=== PATIENT | female | born 1950 | race Caucasian/White ===

== ENCOUNTER 2017-06-10 20:43 | Emergency (ER) | payer MEDICARE, OTHER ==
[2017-06-10 21:01] VITALS: TEMP 97.6
[2017-06-10] MEDS ORDERED: KETOROLAC TROMETHAMINE 30 MG/ML SOL IM ONE (21:03)
[2017-06-10] MEDS ORDERED: KETOROLAC TROMETHAMINE 30 MG/ML SOL ONE (21:18)
[2017-06-10 21:37] VITALS: PULSE 82; RESP 20
[2017-06-10] MEDS ORDERED: TRAMADOL HYDROCHLORIDE 50 MG TAB PO ONE (21:49)
[2017-06-10] MEDS ORDERED: TRAMADOL HYDROCHLORIDE 50 MG TAB ONE (21:54)
[2017-06-10 22:02] VITALS: BP 153/57; O2SAT 95
== END 2017-06-10 22:00 | disposition home or self-care (01) | DRG 605 ==
LOC: ED 20:43
DX: S90.32XA Contusion of left foot, initial encounter (principal); W22.8XXA Striking against or struck by other objects, initial encounter
CPT/HCPCS: 73630; 99283; J1885

== ENCOUNTER 2018-06-21 14:11 | Emergency (ER) | payer MEDICARE, OTHER ==
[2018-06-21 14:29] VITALS: TEMP 97.1
[2018-06-21 14:36] VITALS: RESP 20; O2SAT 98
[2018-06-21] MEDS ORDERED: CLONIDINE 0.1 MG TAB PO ONE (14:41)
[2018-06-21] MEDS ORDERED: HYDRALAZINE HYDROCHLORIDE 20 MG/ML SOL IM ONE (14:41)
[2018-06-21] MEDS ORDERED: CLONIDINE 0.1 MG TAB ONE (14:42)
[2018-06-21] MEDS ORDERED: HYDRALAZINE HYDROCHLORIDE 20 MG/ML SOL ONE (14:42)
[2018-06-21 14:55] LABS: BASOPHILS % (AUTO) 1 % (0-3); EOSINOPHILS % (AUTO) 4 % (0-9); HEMATOCRIT 40 % (35-47); LYMPHOCYTES % (AUTO) 26.1 % (10-50); MEAN CORPUSCULAR HEMOGLOBIN 29.9 pg (27.0-32.0); MEAN CORPUSCULAR HGB CONC 32.4 gm/dl (32.0-36.0); MEAN CORPUSCULAR VOLUME 92 fL (81-99); MONOCYTES % (AUTO) 7.9 % (0-12); NEUTROPHILS % (AUTO) 61.1 % (37-80)
[2018-06-21 15:10] LABS: BLOOD UREA NITROGEN 14 mg/dl (7-18); CALCIUM 9.1 mg/dl (8.5-10.1); CARBON DIOXIDE 27.3 mEq/L (21-32); CHLORIDE 102 mMol/L (98-107); CREATININE 1.19 mg/dl (0.60-1.00); GLUCOSE 95 mg/dl (74-106); POTASSIUM 4.6 mMol/L (3.5-5.1); SODIUM 138 mMol/L (136-145); TROP I < 0.017 ng/ml (0.000-0.056)
[2018-06-21 15:19] VITALS: PULSE 89
[2018-06-21 15:33] VITALS: BP 135/55
== END 2018-06-21 15:42 | disposition home or self-care (01) | DRG 305 ==
LOC: ED 14:11
DX: I16.9 Hypertensive crisis, unspecified (principal)
CPT/HCPCS: 36415; 80048; 84484; 85025; 93005; 96372; 99284; J0360; A9270-GY

== ENCOUNTER 2019-01-02 11:34 | Emergency (ER) | payer MEDICARE, OTHER ==
[2019-01-02] MEDS ORDERED: ONDANSETRON HCL 4 MG/2 ML SOL ONE (12:58)
[2019-01-02] MEDS ORDERED: SODIUM CHLORIDE 0.9% 1000ML 1,000 ML IV ONE (13:05)
[2019-01-02] MEDS ORDERED: ONDANSETRON HCL 4 MG/2 ML SOL IV ONE (13:05)
[2019-01-02 13:36] LABS: HEMATOCRIT 44 % (35-47); HEMOGLOBIN 14.1 gm/dl (12.0-15.5); MEAN CORPUSCULAR HGB CONC 32.1 gm/dl (32.0-36.0); MEAN CORPUSCULAR VOLUME 93 fL (81-99)
[2019-01-02 13:52] LABS: ALBUMIN 3.3 gm/dl (3.4-5.0); BILIRUBIN,TOTAL 0.2 mg/dl (0.2-1.0); CALCIUM 9.6 mg/dl (8.5-10.1); CARBON DIOXIDE 28.1 mEq/L (21-32); CREATININE 0.84 mg/dl (0.60-1.00); CRP INFLAMMATORY 0.85 mg/dl (0.00-0.33); POTASSIUM 4.6 mMol/L (3.5-5.1); TOTAL PROTEIN 7.6 gm/dl (6.4-8.2)
[2019-01-02 14:08] VITALS: O2SAT 95
[2019-01-02 14:52] LABS: BAND NEUTROPHILS % (MANUAL) 3 %; LYMPHOCYTES % (MANUAL) 8 % (10-50); MONOCYTES % (MANUAL) 3 % (0-12); NEUTROPHILS % (MANUAL) 71 % (37-80)
[2019-01-02 14:53] LABS: BASOPHILS % (MANUAL) 0 % (0-3); EOSINOPHILS % (MANUAL) 15 % (0-9); NORMAL RBCS NORMAL RBCS; SEDIMENTATION RATE 52 mm/hr (0-20)
[2019-01-02 15:28] VITALS: BP 132/72; PULSE 77; RESP 20; TEMP 97.9
== END 2019-01-02 15:10 | disposition home or self-care (01) | DRG 392 ==
LOC: ED 11:34
DX: R19.7 Diarrhea, unspecified (principal); R11.10 Vomiting, unspecified; E11.9 Type 2 diabetes mellitus without complications
CPT/HCPCS: 36415; 80053; 82962; 85007; 85027; 85651; 96365; 96374; 99282; 99283; J2405

== ENCOUNTER 2019-01-04 09:45 | Inpatient (IN) | payer MEDICARE, OTHER ==
[2019-01-04] MEDS ORDERED: SODIUM CHLORIDE 0.9% 1000ML 1,000 ML IV ONE (09:54)
[2019-01-04] MEDS ORDERED: ONDANSETRON HCL 4 MG/2 ML SOL IV ONE ×2 (09:55→12:08)
[2019-01-04] MEDS ORDERED: MORPHINE SULFATE 10 MG/ML SOL IV ONE (09:57)
[2019-01-04] MEDS ORDERED: ONDANSETRON HCL 4 MG/2 ML SOL ONE ×2 (09:57→11:42)
[2019-01-04] MEDS ORDERED: MORPHINE SULFATE 10 MG/ML SOL ONE (10:05)
[2019-01-04 10:17] LABS: LACTIC ACID 2.8 mMol/L (0.0-2.0)
[2019-01-04 10:33] LABS: BLOOD UREA NITROGEN 13 mg/dl (7-18); CALCIUM 9.8 mg/dl (8.5-10.1); CARBON DIOXIDE 22.8 mEq/L (21-32); CHLORIDE 96 mMol/L (98-107); CREATININE 1.72 mg/dl (0.60-1.00); GLUCOSE 150 mg/dl (74-106); SODIUM 134 mMol/L (136-145); TROP I < 0.017 ng/ml (0.000-0.056)
[2019-01-04 10:36] LABS: HEMOGLOBIN 16.1 gm/dl (12.0-15.5); MEAN CORPUSCULAR HEMOGLOBIN 30.3 pg (27.0-32.0); MEAN CORPUSCULAR HGB CONC 32.7 gm/dl (32.0-36.0)
[2019-01-04] MEDS ORDERED: HYDROMORPHONE 1 MG/ML SYRINGE ONE (11:41)
[2019-01-04] MEDS: HYDROMORPHONE 1 MG/ML SYRINGE IV PRN ×2 (11:43→16:54)
[2019-01-04] MEDS ORDERED: LEVOFLOXACIN 25 MG/ML 750 MG in SODIUM CHLORIDE 0.9% 250 ML 150 ML IV ONE (12:03)
[2019-01-04] MEDS ORDERED: LEVOFLOXACIN 25 MG/ML SOL IV ONE (12:19)
[2019-01-04] MEDS ORDERED: DIPHENHYDRAMINE 50 MG/ML SOL IV PRN (12:59)
[2019-01-04] MEDS ORDERED: ONDANSETRON HCL 4 MG/2 ML SOL IV PRN (12:59)
[2019-01-04] MEDS ORDERED: METRONIDAZOLE 250 MG TAB PO SCH (13:00)
[2019-01-04] MEDS: SODIUM CHLORIDE 0.9% FLUSH 10 ML SOL IV SCH ×2 (14:51→23:18)
[2019-01-04] MEDS: ACETAMINOPHEN 500 MG 500 MG TAB PO PRN (14:51)
[2019-01-04] MEDS ORDERED: POTASSIUM CHLORIDE 2 MEQ/ML SOL IV ONE ×2 (14:59→21:05)
[2019-01-04] MEDS: SODIUM CHLORIDE 0.45% 1000 ML 1,000 ML with POTASSIUM CHLORIDE 2 MEQ/ML 20 MEQ IV SCH ×2 (15:03→21:12)
[2019-01-04] MEDS ORDERED: METFORMIN HYDROCHLORIDE 500 MG TAB PO SCH (17:30)
[2019-01-04] MEDS: METRONIDAZOLE 250 MG TAB PO SCH ×2 (17:49→21:15)
[2019-01-04] MEDS ORDERED: PROCHLORPERAZINE EDISYLATE 5 MG/ML SOL IV ONE (19:30)
[2019-01-04] MEDS ORDERED: LOSARTAN POTASSIUM 50 MG TAB PO SCH (21:00)
[2019-01-04] MEDS: GABAPENTIN 100 MG CAP PO SCH (21:16)
[2019-01-04] MEDS: ATORVASTATIN 10 MG TAB PO SCH (21:16)
[2019-01-04] MEDS: PANTOPRAZOLE SODIUM 40 MG ECT PO SCH (21:17)
[2019-01-04] MEDS: BUPROPION XL 150 MG T24 PO SCH (21:17)
[2019-01-05] MEDS ORDERED: POTASSIUM CHLORIDE 2 MEQ/ML SOL IV ONE ×3 (02:05→23:55)
[2019-01-05] MEDS: SODIUM CHLORIDE 0.45% 1000 ML 1,000 ML with POTASSIUM CHLORIDE 2 MEQ/ML 20 MEQ IV SCH ×3 (02:11→11:16)
[2019-01-05] MEDS: SODIUM CHLORIDE 0.9% FLUSH 10 ML SOL IV SCH ×3 (06:34→20:58)
[2019-01-05] MEDS: LEVOTHYROXINE SODIUM 50 MCG TAB PO SCH (07:07)
[2019-01-05 07:18] LABS: HEMATOCRIT 40 % (35-47); HEMOGLOBIN 13.4 gm/dl (12.0-15.5); MEAN CORPUSCULAR HGB CONC 33.5 gm/dl (32.0-36.0); MEAN CORPUSCULAR VOLUME 93 fL (81-99)
[2019-01-05 07:30] LABS: CALCIUM 8.2 mg/dl (8.5-10.1); CARBON DIOXIDE 23.5 mEq/L (21-32); CREATININE 0.9 mg/dl (0.60-1.00); POTASSIUM 3.9 mMol/L (3.5-5.1)
[2019-01-05 07:58] LABS: BAND NEUTROPHILS % (MANUAL) 2 %; BASOPHILS % (MANUAL) 0 % (0-3); EOSINOPHILS % (MANUAL) 40 % (0-9); LYMPHOCYTES % (MANUAL) 23 % (10-50); MONOCYTES % (MANUAL) 1 % (0-12); NEUTROPHILS % (MANUAL) 34 % (37-80)
[2019-01-05 08:00] LABS: NORMAL RBCS PRESENT
[2019-01-05] MEDS: APAP/HYDROCODONE 1 EACH TABLET PO PRN ×2 (08:00→18:26)
[2019-01-05 08:06] VITALS: RESP 18
[2019-01-05] MEDS ORDERED: NICOTINE 7 MG PATCH TD PRN (08:23)
[2019-01-05] MEDS ORDERED: NICOTINE 7 MG PATCH TD SCH (08:30)
[2019-01-05] MEDS ORDERED: LEVOTHYROXINE SODIUM 50 MCG TAB PO SCH (09:00)
[2019-01-05] MEDS: KETOROLAC TROMETHAMINE 30 MG/ML SOL IV SCH ×3 (09:24→20:58)
[2019-01-05] MEDS: ENOXAPARIN 30 MG SOL SC SCH (09:24)
[2019-01-05] MEDS: GABAPENTIN 100 MG CAP PO SCH ×2 (09:37→20:57)
[2019-01-05] MEDS: PANTOPRAZOLE SODIUM 40 MG ECT PO SCH ×2 (09:37→20:57)
[2019-01-05] MEDS: ASPIRIN 81 MG CHEWABLE CTB PO SCH (09:38)
[2019-01-05] MEDS: SITAGLIPTIN PHOSPHATE 100 MG TAB PO SCH (09:38)
[2019-01-05] MEDS: HYDROCHLOROTHIAZIDE 25 MG TAB PO SCH (09:38)
[2019-01-05] MEDS: BUPROPION XL 150 MG T24 PO SCH ×2 (09:39→20:58)
[2019-01-05] MEDS: LEVOFLOXACIN 500 MG TAB PO SCH (10:49)
[2019-01-05] MEDS: METRONIDAZOLE 250 MG TAB PO SCH ×4 (10:49→20:57)
[2019-01-05] MEDS: ACETAMINOPHEN 500 MG 500 MG TAB PO PRN (16:31)
[2019-01-05] MEDS: ATORVASTATIN 10 MG TAB PO SCH (20:57)
[2019-01-06] MEDS: SODIUM CHLORIDE 0.45% 1000 ML 1,000 ML with POTASSIUM CHLORIDE 2 MEQ/ML 20 MEQ IV SCH (00:12)
[2019-01-06 06:30] VITALS: PULSE 70
[2019-01-06] MEDS: LEVOTHYROXINE SODIUM 50 MCG TAB PO SCH (06:33)
[2019-01-06] MEDS: SODIUM CHLORIDE 0.9% FLUSH 10 ML SOL IV SCH ×3 (06:36→09:01)
[2019-01-06 07:26] LABS: CALCIUM 8.5 mg/dl (8.5-10.1); CARBON DIOXIDE 20.7 mEq/L (21-32); CREATININE 0.99 mg/dl (0.60-1.00); POTASSIUM 4.1 mMol/L (3.5-5.1)
[2019-01-06 07:49] LABS: BASOPHILS % (AUTO) 1 % (0-3); EOSINOPHILS % (AUTO) 49 % (0-9); HEMATOCRIT 36 % (35-47); LYMPHOCYTES % (AUTO) 14.1 % (10-50); MEAN CORPUSCULAR HEMOGLOBIN 30.8 pg (27.0-32.0); MEAN CORPUSCULAR HGB CONC 33.3 gm/dl (32.0-36.0); MEAN CORPUSCULAR VOLUME 93 fL (81-99); MONOCYTES % (AUTO) 3.3 % (0-12); NEUTROPHILS % (AUTO) 32.3 % (37-80)
[2019-01-06 07:56] VITALS: BP 145/82; TEMP 98; O2SAT 97
[2019-01-06] MEDS: HYDROCHLOROTHIAZIDE 25 MG TAB PO SCH (08:45)
[2019-01-06] MEDS: ASPIRIN 81 MG CHEWABLE CTB PO SCH (08:45)
[2019-01-06] MEDS: METRONIDAZOLE 250 MG TAB PO SCH (08:45)
[2019-01-06] MEDS: SITAGLIPTIN PHOSPHATE 100 MG TAB PO SCH (08:47)
[2019-01-06] MEDS: LEVOFLOXACIN 500 MG TAB PO SCH (08:48)
[2019-01-06] MEDS: GABAPENTIN 100 MG CAP PO SCH (08:49)
[2019-01-06] MEDS: BUPROPION XL 150 MG T24 PO SCH (08:50)
[2019-01-06] MEDS: PANTOPRAZOLE SODIUM 40 MG ECT PO SCH (08:50)
[2019-01-06] MEDS: KETOROLAC TROMETHAMINE 30 MG/ML SOL IV SCH (08:56)
[2019-01-06] MEDS: ENOXAPARIN 30 MG SOL SC SCH (09:06)
== END 2019-01-06 10:25 | disposition home or self-care (01) | DRG 392 ==
LOC: ED 09:45 → ACUTE CARE 12:38 → UNDOADMIN 12:38 → ACUTE CARE 13:02
PROVIDERS: ADMIT Family Medicine; ATTEND Family Medicine
DX: I71.9 Aortic aneurysm of unspecified site, without rupture (principal); K57.32 Diverticulitis of large intestine without perforation or abscess without bleeding; I72.3 Aneurysm of iliac artery; E11.9 Type 2 diabetes mellitus without complications; I10 Essential (primary) hypertension; E86.0 Dehydration; N28.9 Disorder of kidney and ureter, unspecified; R10.9 Unspecified abdominal pain
CPT/HCPCS: 36415; 74177; 80048; 82962; 84484; 85007; 85025; 85027; 87040; 93005; 93012; 96365; 96366; 96374; 96375; 99285; 99291; J0780; J1885; J1956; J2270; J2405; J3480; Q9967; A9270-GY; J1170; J1650

== ENCOUNTER 2019-03-31 08:10 | Day surgery (SDC) | payer MEDICARE, OTHER ==
[~2019-03-31 08:10] MED LIST: LIDOCAINE HCL 1% MPF 30 SOL ONE; PROPOFOL 500 MG/50 ML EMU IV ONE
[2019-03-31 11:19] VITALS: BP 131/71; PULSE 72; RESP 18; TEMP 97.4; O2SAT 96
== END 2019-03-31 11:30 | disposition home or self-care (01) | DRG 951 ==
LOC: SURG 08:10
PROVIDERS: ATTEND Surgery
DX: Z12.11 Encounter for screening for malignant neoplasm of colon (principal); E11.9 Type 2 diabetes mellitus without complications; K59.00 Constipation, unspecified; D12.8 Benign neoplasm of rectum; K63.5 Polyp of colon; D12.2 Benign neoplasm of ascending colon; D12.5 Benign neoplasm of sigmoid colon; D12.3 Benign neoplasm of transverse colon
CPT/HCPCS: J2001; J2704